=== PATIENT | female | born 1960 | race Caucasian/White ===

== ENCOUNTER 2016-07-13 08:45 | Outpatient (RCR) | payer OTHER ==
[~2016-07-13 08:45] MED LIST: ACETAMINOPHEN500 MG PO; AMBIEN 5MG TABLE5 MG PO; ARAVA10 MG PO; ASPIR-LOW81 MG PO; ATIVAN 0.50.5 MG/TAB PO; CALTRATE 600 +1 TAB PO; CITALOPRAM HYDR40 MG PO; CLARITIN; COLACE100 MG PO; CYCLOBENZAPRINE10 MG PO; DEPO-PROVER150 MG/M1 IM; EFFEXOR XR75 MG/CAP PO; ENBREL50 MG/ML SC; FOLIC ACID; GABAPENTIN300 M1 PO; HUMIRA40 MG/0.1 SC; IBUPROFEN600 MG PO; LEVOTHYROXIN0.175 MG PO; LYRICA 25MG CAP25 MG PO; METAMUCIL1 PDR PO; METHOTREXA2.5 MG/TAB IM; MORPHINE SULFAT60 M1 PO; NASAREL SPRAY25 ML NS; ONE DAILY1 TA1 PO; PERCOCET 5/321 UDTAB PO; PLAQUENIL PO; PREDNISONE20 MG PO; PRILOSEC 20MG20 MG PO; RANITIDINE HYD150 MG PO; SENNA CONCENTR8.6 MG PO; TRAMADOL50 MG PO; TRAZODO50 MG PO; VICODIN 5/5001 UDTAB PO; ZOVIRAX CREAM3 GM TP
== END 2016-07-24 | disposition home or self-care (01) ==
LOC: WSPT
DX: M06.89 Other specified rheumatoid arthritis, multiple sites (principal); M79.7 Fibromyalgia; G89.29 Other chronic pain

== ENCOUNTER → 2016-10-18 | Outpatient (CLI) | payer OTHER | LOC: COL.RAD 10-03 10:30 | DX: M54.2 Cervicalgia (principal) ==

== ENCOUNTER 2016-10-24 08:45 | Outpatient (RCR) | payer OTHER | END 2016-10-25 | disposition still patient (30) | LOC: WSPT | DX: M79.7 Fibromyalgia (principal) ==

== ENCOUNTER 2017-01-24 08:45 | Outpatient (RCR) | payer OTHER | END 2017-01-29 | LOC: WSPT | DX: M79.7 Fibromyalgia (principal) ==

== ENCOUNTER → 2017-04-23 | Outpatient (CLI) | payer OTHER | LOC: MHCPAIN 11:05 | DX: G89.29 Other chronic pain (principal); M50.90 Cervical disc disorder, unspecified, unspecified cervical region; M79.2 Neuralgia and neuritis, unspecified | CPT/HCPCS: G0463 ==

== ENCOUNTER 2017-04-26 10:00 | Outpatient (RCR) | payer OTHER | END 2017-04-30 | disposition home or self-care (01) | LOC: WSPT | DX: M79.7 Fibromyalgia (principal); G89.29 Other chronic pain ==

== ENCOUNTER 2017-05-17 08:45 | Outpatient (RCR) | payer OTHER | END 2017-05-21 12:06 | disposition home or self-care (01) | LOC: WSPT 08:45 | DX: M79.7 Fibromyalgia (principal) ==

== ENCOUNTER 2017-08-15 14:00 | Outpatient (RCR) | payer OTHER | END 2017-08-29 | disposition home or self-care (01) | LOC: WSPT | DX: M79.7 Fibromyalgia (principal) ==

== ENCOUNTER → 2017-08-21 | Outpatient (CLI) | payer OTHER | LOC: MC.RAD 09:14 | DX: Z12.31 Encounter for screening mammogram for malignant neoplasm of breast (principal) ==

== ENCOUNTER 2017-10-09 14:15 | Outpatient (RCR) | payer OTHER | END 2017-12-24 | disposition home or self-care (01) | LOC: WSPT | DX: M79.7 Fibromyalgia (principal) ==

== ENCOUNTER → 2018-09-12 | Outpatient (CLI) | payer OTHER | LOC: MC.RAD 09-11 15:00 | DX: Z12.31 Encounter for screening mammogram for malignant neoplasm of breast (principal) ==

== ENCOUNTER 2018-10-28 13:30 | Outpatient (RCR) | payer OTHER | END 2018-11-04 | disposition home or self-care (01) | LOC: WSC | DX: M79.7 Fibromyalgia (principal); G89.4 Chronic pain syndrome ==

== ENCOUNTER 2019-04-20 12:45 | Outpatient (RCR) | payer OTHER | END 2019-04-23 | disposition home or self-care (01) | LOC: WSPT | DX: Z98.890 Other specified postprocedural states (principal) ==

== ENCOUNTER → 2019-11-19 | Outpatient (CLI) | payer OTHER | LOC: MC.RAD 11:23 | DX: Z12.31 Encounter for screening mammogram for malignant neoplasm of breast (principal) ==

== ENCOUNTER 2020-01-22 10:01 | Emergency (ER) | payer OTHER ==
[~2020-01-22] VITALS: Ht 162.6 cm; Wt 95.5 kg
[2020-01-22 10:02] VITALS: TEMP 97.9
[2020-01-22 10:36] LABS: BASO # 0.1 (0.0-0.2); BASO % 1.9 % (0.0-2.0); EOS # 0.2 (0.0-0.7); EOS % 2.6 % (0-4.0); GRAN # 3.4 (1.4-6.5); GRAN % 58.7 % (42.2-75.2); HEMATOCRIT 42.1 % (37.0-47.0); HEMOGLOBIN 13.9 g/dl (12.5-16.0); LYMPH # 1.4 (1.2-3.4); MEAN CELL VOLUME 84 fl (80.0-100.0); MEAN CORPUSCULAR HEMOGLOBIN 28 pg (27.0-31.0); MEAN CORPUSCULAR HGB CONC 33 g/dl (33.0-37.0); MEAN PLATELET VOLUME 10.6 fl (7.4-10.4); MONO # 0.7 (0.1-0.6); MONO % 11.5 % (1.7-9.3); PLATELET COUNT 190 K/mm3 (130-400); RED BLOOD COUNT 5.03 M/mm3 (4.10-5.30); REDCELL DISTRIBUTION WIDTH-CV 12.9 % (11.5-14.5)
[2020-01-22] MEDS ORDERED: PEPCID 20MG TAB20 MG PO (10:37)
[2020-01-22] MEDS ORDERED: CRESTOR 10MG10 MG PO (10:38)
[2020-01-22] MEDS ORDERED: CYMBALTA 60MG60 MG PO (10:39)
[2020-01-22] MEDS ORDERED: BUSPAR 30MG30 MG/TAB PO (10:40)
[2020-01-22] MEDS ORDERED: BENTYL 10MG10 MG/CAP PO (10:40)
[2020-01-22 10:41] LABS: ALBUMIN 4.5 gm/dL (3.5-5.0); BILIRUBIN,TOTAL 0.9 mg/dL (0.0-1.0); C-REACTIVE PROTEIN 0.8 mg/dL (0.0-0.9); CALCIUM 9.4 mg/dL (8.4-10.2); CREATININE, serum 0.8 (0.52-1.25); POTASSIUM 3.5 mmol/L (3.4-5.0)
[2020-01-22] MEDS ORDERED: VOLTAREN 75 DR75 MG PO (10:41)
[2020-01-22] MEDS ORDERED: ATARAX 25MG25 MG/TAB PO (10:42)
[2020-01-22] MEDS ORDERED: DOXYCYCLINE 10100 MG PO (11:29)
[2020-01-22 11:40] VITALS: BP 159/94; PULSE 90
[2020-01-23] MEDS ORDERED: ZOFRAN ODT4 MG PO (09:44)
[2020-01-23] MEDS ORDERED: CEPHALEXIN500 M1 PO (09:44)
== END 2020-01-22 11:45 | disposition home or self-care (01) ==
LOC: COL.ER 10:01
PROVIDERS: Nurse Practitioner
DX: L03.115 Cellulitis of right lower limb (principal); M79.7 Fibromyalgia; Q05.9 Spina bifida, unspecified; Z20.828 Contact with and (suspected) exposure to other viral communicable diseases; Z90.49 Acquired absence of other specified parts of digestive tract

== ENCOUNTER 2020-01-23 08:42 | Emergency (ER) | payer OTHER ==
[~2020-01-23] VITALS: Ht 162.6 cm; Wt 95.5 kg
[~2020-01-23 08:42] MED LIST changes: +ATARAX 25MG25 MG/TAB PO; +BENTYL 10MG10 MG/CAP PO; +BUSPAR 30MG30 MG/TAB PO; +CRESTOR 10MG10 MG PO; +CYMBALTA 60MG60 MG PO; +DOXYCYCLINE 10100 MG PO; +PEPCID 20MG TAB20 MG PO; +VOLTAREN 75 DR75 MG PO
[2020-01-23 08:48] VITALS: TEMP 98.6
[2020-01-23 09:17] LABS: BASO # 0.1 (0.0-0.2); BASO % 1.5 % (0.0-2.0); EOS % 0.5 % (0-4.0); GRAN # 3.8 (1.4-6.5); GRAN % 65.4 % (42.2-75.2); HEMATOCRIT 40.4 % (37.0-47.0); HEMOGLOBIN 13.2 g/dl (12.5-16.0); LYMPH # 1.3 (1.2-3.4); LYMPH % 22.7 % (20.0-51.0); MEAN CELL VOLUME 82 fl (80.0-100.0); MEAN CORPUSCULAR HEMOGLOBIN 27 pg (27.0-31.0); MEAN CORPUSCULAR HGB CONC 33 g/dl (33.0-37.0); MEAN PLATELET VOLUME 10.6 fl (7.4-10.4); MONO # 0.6 (0.1-0.6); MONO % 9.6 % (1.7-9.3); PLATELET COUNT 190 K/mm3 (130-400); REDCELL DISTRIBUTION WIDTH-CV 13.1 % (11.5-14.5)
[2020-01-23 09:18] LABS: COLLECTION METHOD CLEAN CATCH
[2020-01-23 09:30] LABS: ALBUMIN 4.6 gm/dL (3.5-5.0); BILIRUBIN,TOTAL 0.8 mg/dL (0.0-1.0); C-REACTIVE PROTEIN 0.8 mg/dL (0.0-0.9); CALCIUM 9.5 mg/dL (8.4-10.2); CREATININE, serum 0.76 (0.52-1.25); POTASSIUM 3.6 mmol/L (3.4-5.0)
[2020-01-23] MEDS ORDERED: CEPHALEXIN500 M1 PO (09:44)
[2020-01-23] MEDS ORDERED: ZOFRAN ODT4 MG PO (09:44)
[2020-01-23 09:57] LABS: AMORPHOUS CRYSTAL Present /uL; MUCOUS Present /lpf; PH 8 (5-8); URINE APPEARANCE Cloudy; URINE BACTERIA Rare /hpf; URINE BILIRUBIN Negative (NEGATIVE); URINE BLOOD Negative (NEGATIVE); URINE COLOR Yellow; URINE GLUCOSE Negative (NEGATIVE); URINE KETONE Negative (NEGATIVE); URINE LEUKOCYTE ESTERASE Negative (NEGATIVE); URINE NITRATE Negative (NEGATIVE); URINE PROTEIN(semi-quant) 1+ (NEGATIVE); URINE RBC 0-2 /hpf; URINE UROBILINOGEN Negative (NEGATIVE)
[2020-01-23 10:30] VITALS: BP 156/95; PULSE 94
== END 2020-01-23 10:30 | disposition home or self-care (01) ==
LOC: COL.ER 08:42
PROVIDERS: Physician Assistant
DX: R19.7 Diarrhea, unspecified (principal); L03.115 Cellulitis of right lower limb; R11.2 Nausea with vomiting, unspecified; T36.4X5A Adverse effect of tetracyclines, initial encounter; M79.7 Fibromyalgia; F41.9 Anxiety disorder, unspecified; F32.9 Major depressive disorder, single episode, unspecified; Z88.2 Allergy status to sulfonamides; Z79.899 Other long term (current) drug therapy
CPT/HCPCS: J2405; J7030